=== PATIENT | male | born 1990 | race Caucasian/White ===

== ENCOUNTER 2017-01-14 18:06 | Emergency (ER) | payer BC, MEDICAID, OTHER ==
[2017-01-14 18:33] VITALS: BP 131/80
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
== END 2017-01-14 19:45 | disposition home or self-care (01) ==
LOC: LL.ED 18:06
DX: S62.327A Displaced fracture of shaft of fifth metacarpal bone, left hand, initial encounter for closed fracture (principal); F41.8 Other specified anxiety disorders; F10.10 Alcohol abuse, uncomplicated; I10 Essential (primary) hypertension; M15.0 Primary generalized (osteo)arthritis; F19.90 Other psychoactive substance use, unspecified, uncomplicated; K21.9 Gastro-esophageal reflux disease without esophagitis; Z71.6 Tobacco abuse counseling; F17.210 Nicotine dependence, cigarettes, uncomplicated; Z90.49 Acquired absence of other specified parts of digestive tract; Z98.890 Other specified postprocedural states; Z88.5 Allergy status to narcotic agent; Y04.0XXA Assault by unarmed brawl or fight, initial encounter; Y92.009 Unspecified place in unspecified non-institutional (private) residence as the place of occurrence of the external cause
CPT/HCPCS: 29125; 73130-LT; 99283; 99284

== ENCOUNTER 2024-04-12 19:45 | Emergency (ER) | payer BC, OTHER ==
[2024-04-12] MEDS: Take Home: traMADol 50 MG, 4 Tab Pack PO ONE (21:46)
[2024-04-12] MEDS: Ketorolac 30 MG/ML SDV IM ONE (21:47)
[2024-04-12] MEDS: traMADol 50 MG Tab PO ONE (21:47)
[2024-04-12 22:08] VITALS: BP 133/94; PULSE 75
== END 2024-04-12 22:15 | disposition home or self-care (01) ==
LOC: LL.ED 19:45
DX: S42.254A Nondisplaced fracture of greater tuberosity of right humerus, initial encounter for closed fracture (principal); F17.210 Nicotine dependence, cigarettes, uncomplicated; Z88.5 Allergy status to narcotic agent; Z79.899 Other long term (current) drug therapy; Z90.49 Acquired absence of other specified parts of digestive tract; X50.1XXA Overexertion from prolonged static or awkward postures, initial encounter
CPT/HCPCS: 73000-RT; 73030-RT; 73200-RT; 96372; 99284; A9270-GY; J1885